=== PATIENT | female | born 1940 | race Caucasian/White ===

== ENCOUNTER 2025-04-10 07:07 | Day surgery (SDC) | payer MEDICARE, OTHER ==
[~2025-04-10] VITALS: Ht 157.5 cm; Wt 63.4 kg
[2025-04-10] MEDS ORDERED: normal saline 1000ml 1,000 ML IV PRN (08:00)
[2025-04-10 08:01] VITALS: BP 119/56; PULSE 48; RESP 15; TEMP 97.9; O2SAT 96
[2025-04-10] MEDS ORDERED: ASPI-611 PO (08:06)
[2025-04-10] MEDS ORDERED: HYDR-3972 PO (08:06)
[2025-04-10] MEDS ORDERED: TRIA1TAB3 PO (08:07)
[2025-04-10 08:27] LABS: MEAN PLATELET VOLUME 8.9 FL (7.4-10.4); RED CELL DISTRIBUTION WIDTH 15.6 % (11.5-14.5)
[2025-04-10 08:39] LABS: INR 1.0 INR
[2025-04-10 08:44] LABS: CREATININE 1.18 MG/DL (0.40-0.90); TOTAL CARBON DIOXIDE 30.3 MMOL/L (24-32); eCRCL 27 ML/MIN; eGFR 43 ML/MIN
--- NOTE | 2025-04-10 10:39 | RADIOLOGY REPORT ---
Procedure: CT CTA ABDOMEN PELVIS HISTORY: VASCULAR DISEASE Comparison Study: None Exam Date:04/10/2025 09:03 AM TECHNIQUE: CTA scanner volumetric data acquisition of abdomen and pelvis was obtained following intravenous admi nistration of intravenous contrast without any reported adverse effects. Axial images were reconstru cted and additional sagittal and coronal images were reformatted. arterial phase imaging were perfor med. Postprocessing was also performed on a Separate workstation. 3D images were performed on a dedicated workstation and reviewed for reporting. Radiation Dose : CT Dose: CTDI volume is 15.5 mGy. Dose-length product is 748.4 mGy*cm FINDINGS: Vascular: Diffuse Vascular atherosclerotic calcifications. No abdominal aortic aneurysm. No acute aortic pathology. 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 Moderate grade stenosis of the proximal right renal artery. Femoral femoral bypass arterial graft is present and appears patent. Left external iliac artery stent is present and patent. 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 High-grade stenosis of the right external and internal iliac a rteries. Lung Bases: No acute or significant lung base finding. Normal heart size. No pleural or pericardial effusion. Liver: The liver is normal in size. No focal lesions. Normal hepatic vascular enhancement. Gallbladder and Biliary Tree: Unremarkable Spleen: Unremarkable Pancreas: The pancreas is normal in appearance without focal lesions or abnormal enhancement. Adrenal Glands: Unremarkable Kidneys: Kidneys demonstrate normal symmetric enhancement without focal lesions, calculi or hydroneph rosis. Bladder: Unremarkable Bowel: The stomach is grossly normal in appearance. Moderate diffuse colonic bowel wall thickening. Normal appendix is visualized in the right lower quadrant without findings of appendicitis. Ascites: Absent Lymphadenopathy: No mesenteric, retroperitoneal or periportal lymphadenopathy. Abdominal Wall and Mesentery: Unremarkable. Vasculature: The visualized abdominal aorta is normal in size and caliber. Abdominal and pelvic vess els demonstrate normal enhancement. Pelvic Organs: Unremarkable Musculoskeletal: No aggressive focal bony lesions, acute fractures or dislocation. Moderate degenerat stewart changes of bilateral hips. IMPRESSION: No evidence of acute aneurysm, dissection, or intramural hematoma. Diffuse vascular atherosclerotic disease. 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 Moderate grade stenosis of the proximal right renal artery. Femoral femoral bypass arterial graft is present and appears patent. Left external iliac artery stent is present and patent. 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 High-grade stenosis of the right external and internal iliac a rteries.
== END 2025-04-10 12:45 | disposition home or self-care (01) ==
LOC: SSTAY O 07:07
PROVIDERS: ATTEND Surgery
DX: I73.9 Peripheral vascular disease, unspecified (principal); I77.1 Stricture of artery; I70.1 Atherosclerosis of renal artery; Z53.8 Procedure and treatment not carried out for other reasons
CPT/HCPCS: 36415; 74174; 80053; 85025; 85610; J7030; Q9967